=== PATIENT | female | born 1995 | race Two or more races ===

== ENCOUNTER 2025-04-07 22:35 | Emergency (ER) | payer MEDICAID, OTHER ==
[~2025-04-07] VITALS: Ht 170.2 cm; Wt 56.9 kg
[2025-04-07] MEDS: FLUORESCEIN SOD OPTH TEST STRIP LEFTEYE ONE (23:02)
[2025-04-07] MEDS: KETOROLAC TROMETH 60MG/2ML VIAL IM ONE (23:27)
[2025-04-07] MEDS: ERYTHROMY OPTH OINT 5mg/gm 1gm or 3.5gm tube OP ONE (23:33)
[2025-04-07 23:35] VITALS: BP 111/74; PULSE 68; RESP 19; TEMP 98.1; O2SAT 100
--- NOTE | 2025-04-07 23:35 | ED.PDOC ---
Eye-HPI HPI Comments Pt presents with cc of possible scratch to left eye. Pt was taking care of chickens when she accidentally scratched her left eye with plywood. Pt reports she has been unable to open her eye d/t the pain. Denies double vision does note some blurriness denies fevers or chills nausea or vomiting or dizziness. Chief Complaint: Eye Problem Time Seen by MD: 22:44 Reviewed Notes: Nurses Notes, Medications, Allergies Allergies: Coded Allergies: No Known Drug Allergy (Verified Allergy, Unknown, 04/07/25) Information Source: Patient Mode of Arrival: Ambulatory Past Medical History PAST MEDICAL HISTORY: Denies Surgical History: Denies all surgeries [employer] History: No Pertinent [employer] History Family History Family History: Reviewed,noncontributory to illness Social History Smoker: Non-Smoker Alcohol: Denies ETOH Use Drugs: Denies Drug Use All Other Systems: Reviewed and Negative (see hpi) Physical Exam General Appearance: No Apparent Distress, Normal HEENT: Pharynx Normal, TMs Normal, Other (HYPEREMIA LEFT EYE NOTED SUPERFICIAL ABRASION UNDER RIGHT EYE NO OBVIOUS FOREIGN BODY NOTED) Neck: Full Range of Motion, Non-Tender Respiratory: Lungs Clear, No Respiratory Distress, Normal Breath Sounds Cardiovascular: No Murmur, Normal Peripheral Pulses, Regular Rate/Rhythm Breast Exam: Deferred Gastrointestinal: Non Tender, Soft Genitalia: Deferred Pelvic: Deferred Rectal: Deferred Extremities: Normal inspection, Normal range of motion, Non-tender Musculoskeletal : Apperance: Normal Neurologic: Alert, No Motor Deficits, Normal Affect, Normal Mood, No Sensory Deficits Cerebellar Function: Normal Reflexes: NOT DONE Skin: Dry, Normal Color, Warm Lymphatic: No Adenopathy Was a procedure done? Was a procedure done?: Yes Sedation Sedation?: No Informed consent obtained: Yes Foreign Body Removal Foreign body in: Eye Anesthetic: Other (TETRACAINE 0.5% ONE DROP LEFT EYE) Prep: Prep (FLUORESCEIN 1 MG) Procedure: Not Identified Informed consent obtained: Yes Risks/benefits/alt described: Yes Notes PATIENT TOLERATED WELL NOTED SCLERAL ABRASIONS AND CORNEA UPTAKE OF FLUORESCEIN. NO NOTED ULCERATIONS OR LACERATIONS OR GLOBE PENETRATION NO NOTED OBVIOUS FOREIGN BODY. EENT DIFF Eye: Corneal Abrasion, Corneal Lacerations, Corneal Ulceration, Foreign Body- Conjunctiva, Foreign Body-Corneal, Foreign Body-Intraocular, Foreign Body-Lid, Glaucoma, Globe Rupture X-Ray, Labs, Meds, VS Vital Signs Date Time Temp Pulse Resp B/P (MAP) Pulse Ox O2 Delivery O2 Flow Rate FiO2 04/07/25 23:35 68 19 100 Room Air 04/07/25 23:35 98.1 68 19 111/74 (86) 100 98.1 04/07/25 22:39 98.3 81 16 120/83 99 98.3 Current Medications Medications (Trade) Dose Ordered Sig/Shaun Route Start Time Stop Time Status Last Admin Ketorolac Tromethamine (Toradol Injection) 60 mg ONCE ONCE IM 04/07/25 23:15 04/07/25 23:16 DC 04/07/25 23:27 Erythromycin 1 applic ONCE ONCE OP 04/07/25 23:30 04/07/25 23:31 DC 04/07/25 23:33 X-Ray, Labs, Meds, VS Comment SEE PROCEDURE NOTE START PATIENT ON ANTIBIOTICS ADVISED TO FOLLOW UP WITH OPHTHALMOLOGY WITHIN 24- 48 HOURS. ADVISED ON ER RETURN PRECAUTIONS PATIENT INDICATES UNDERSTANDING AGREES WITH DISCHARGE PLAN OF CARE. Time of 1ST Reevaluation: 23:00 Reevaluation 1ST: Unchanged Time of 2ND Reevaluation: 23:31 Reevaluation 2ND: Improved Patient Education/Counseling: Diagnosis, Treatment, Need For Follow Up, Other (FOLLOW UP WITH OPHTHALMOLOGY WITHIN 24-48 HOURS) Family Education/Counseling: Diagnosis, Treatment SEPSIS Sepsis Screen Date sepsis recognized/suspect: Apr 07, 2025 Time Sepsis recognized/suspect: 2241 Recent Procedure: No On Antibiotic Therapy: No Respiratory Rate >20: No Heart Rate >90: No Temp<36 C (96.8 F) or >38.3 C: No SBP <90 or MAP <65 mmHG: No New Acute Mental Status Change: No Is the patient on CPAP, BIPAP,: No Vital Signs Date Time Temp Pulse Resp B/P (MAP) Pulse Ox O2 Delivery O2 Flow Rate FiO2 04/07/25 23:35 68 19 100 Room Air 04/07/25 23:35 98.1 68 19 111/74 (86) 100 98.1 04/07/25 22:39 98.3 81 16 120/83 99 98.3 Medications Medications Dose Ordered Sig/Shaun Route Start Time Stop Time Status Last Admin Dose Admin Erythromycin 1 applic ONCE ONCE OP 04/07/25 23:30 04/07/25 23:31 DC 04/07/25 23:33 Ketorolac Tromethamine 60 mg ONCE ONCE IM 04/07/25 23:15 04/07/25 23:16 DC 04/07/25 23:27 Departure 1 Departure Time of Disposition: 23:31 Impression: Primary Impression: Corneal abrasion Qualified Codes: S05.02XA - Injury of conjunctiva and corneal abrasion without foreign body, left eye, initial encounter Additional Impression: Abrasion of sclera of left eye Qualified Codes: S05.8X2A - Other injuries of left eye and orbit, initial encounter Disposition: HOME / SELF CARE / HOMELESS Condition: Stable e-Prescriptions Moxifloxacin Hydrochloride (Moxifloxacin) 0.5 % Yrn 1 DROP LEFTEYE TID for 7 Days, #2 ML Prov: KARINA KEENAN 04/08/25 Discharged With: Relative (Sibling) Critical Care Note Critical Care Time?: No Stability Stability form required: KARINA Collins Apr 07, 2025 23:35
[2025-04-08] MEDS ORDERED: MOXI0.5D9 LEFTEYE (00:54)
== END 2025-04-07 23:50 | disposition home or self-care (01) ==
LOC: ER 22:35
DX: S05.02XA Injury of conjunctiva and corneal abrasion without foreign body, left eye, initial encounter (principal); X58.XXXA Exposure to other specified factors, initial encounter; Y93.89 Activity, other specified; Y92.89 Other specified places as the place of occurrence of the external cause; Y99.8 Other external cause status
CPT/HCPCS: 96372; 99283; J1885